=== PATIENT | female | born 1965 | race Caucasian/White ===

== ENCOUNTER 2017-01-28 10:26 | Inpatient (IN) ==
[2017-01-28 12:06] LABS: BASO% 0.1 % (0.0-0.8); EOS# 0.09 X1000 (0.0-0.7); EOS% 0.7 % (0.0-10.0); HEMATOCRIT 40.8 % (37.0-47.0); HEMOGLOBIN 13.6 g/dL (12.0-16.0); IMM GRAN# 1.57 X1000 (0.0-0.04); IMM GRAN% 11.6 % (0.0-0.5); LYMPH% 8.1 % (20.5-51.1); MANUAL DIFF NEEDED? NO; MCH 28.9 PG (27-31); MCHC 33.3 g/dL (33-37); MCV 86.6 FL (81-99); MONO# 0.02 X1000 (0.11-0.59); MONO% 0.1 % (1.7-9.3); MPV 12.9 FL (7.4-10.4); NEUT% 79.4 % (42.2-75.2); PLT 93 X1000 (130-400); RBC 4.71 XMIL (4.2-5.4)
[2017-01-28 12:17] LABS: ALBUMIN 2.6 g/dL (3.5-5.0); POTASSIUM 3.7 mmol/L (3.5-5.1); TOTAL BILIRUBIN 2.73 mg/dL (0.20-1.00); TOTAL PROTEIN 6.5 g/dL (6.3-8.3)
[2017-01-28] MEDS ORDERED: NS 1,000 ML IV ONE ×3 (13:51→16:08)
[2017-01-28] MEDS ORDERED: ZOSYN 3.375 GM in NS 50 ML IV ONE (13:52)
[2017-01-28 14:44] LABS: ACETONE SERUM NEGATIVE (NEGATIVE)
[2017-01-28 14:46] LABS: HEMOGLOBIN A1C 6.7 % (4.8-6.0)
[2017-01-28 14:56] LABS: ACETAMINOPHEN < 1.2 ug/mL (10-30)
[2017-01-28] MEDS ORDERED: ZOFRAN IV PRN (15:09)
[2017-01-28] MEDS ORDERED: ZOSYN 2.25 GM in NS 50 ML IV SCH (15:15)
[2017-01-28] MEDS ORDERED: NS 3,000 ML IV ONE (15:19)
[2017-01-28] MEDS ORDERED: LEVOPHED 8 MG in D5 1/2 NS 250 ML IV SCH (15:30)
[2017-01-28 15:32] LABS: I-STAT BE -6 mmoll (-2-3); I-STAT GLUCOSE 102 mg/dL (70-105); I-STAT HCO3 17.1 mmoll (22.0-26.0); I-STAT HEMATOCRIT 36 % (38-51); I-STAT HEMOGLOBIN 12.2 g/dL (11.5-17.5); I-STAT IONIZED CALCIUM 1.14 mmoll (1.12-1.32); I-STAT K 3.4 mmoll (3.5-4.9); I-STAT PCO2 20.9 mmHg (35.0-45.0); I-STAT SO2 98 % (95-98); I-STAT SODIUM 128 mmoll (138-146); I-STAT TCO2 18 mmoll (23-27)
[2017-01-28 15:49] LABS: URINE SOURCE CATH
[2017-01-28 15:55] LABS: UR CREAT RANDOM 249.4 mg/dL (11-20)
[2017-01-28 15:59] LABS: BILIRUBIN URINE MODERATE (NEGATIVE); BLOOD URINE SMALL (NEGATIVE); CLARITY CLOUDY (CLEAR); COLOR YELLOW; GLUCOSE URINE NEGATIVE (NEGATIVE); LEUKOCYTES URINE TRACE (NEGATIVE); NITRITE URINE NEGATIVE (NEGATIVE); PROTEIN URINE 100 mg/dL (NEGATIVE); SP GRAVITY URINE >= 1.030
[2017-01-28 16:18] LABS: URINE CULTURE NEEDED? YES; URINE EPITHELIAL CELLS <10 /HPF (<10); URINE RBC <10 /HPF (<10); URINE WBC <10 /HPF (<10)
[2017-01-28 16:20] LABS: URINE CAST GRANULAR PRESENT /LPF; URINE CRYSTAL NONE SEEN /HPF
[2017-01-28] MEDS: HUMALOG SUBQ SCH ×2 (17:03→20:03)
[2017-01-28] MEDS: NS 1,000 ML IV SCH ×2 (17:03→23:05)
[2017-01-28] MEDS: FOLIC ACID 1 MG in NS 50 ML IV SCH (17:08)
[2017-01-28] MEDS: ZOSYN 2.25 GM in NS 50 ML IV SCH (20:03)
[2017-01-28] MEDS ORDERED: ULTRAM PO ONE ×2 (21:48→21:54)
[2017-01-29] MEDS ORDERED: ATROVENT NEB INH ONE (01:05)
[2017-01-29] MEDS ORDERED: XOPENEX NEB INH ONE (01:05)
[2017-01-29] MEDS ORDERED: LASIX IV ONE (01:06)
[2017-01-29] MEDS ORDERED: LASIX ONE (01:08)
[2017-01-29] MEDS ORDERED: MORPHINE IV ONE (01:15)
[2017-01-29] MEDS ORDERED: NS NEB INH SCH (01:15)
[2017-01-29 01:42] LABS: ALLEN TEST YES; BE -7.2 mmoll (-3.0-3.0); BLOOD TYPE ARTERIAL; DRAW SITE R RADIAL; METHB 1.5 % (0.0-1.5); O2(CT) 19.3 mL/dL (15.0-23.0); PCO2(98.6) 44 mmHg (35-45); PO2(98.6) 324 mmHg (60-100); SAMPLE BLOOD; SAO2 100.3 % (95.0-100.0); THB 13.6 g/dL (11.5-17.4); pH(98.6) 7.26 (7.35-7.45)
[2017-01-29 01:43] LABS: MODALITY BI PAP
[2017-01-29] MEDS: ZOSYN 2.25 GM in NS 50 ML IV SCH ×4 (02:20→21:06)
[2017-01-29] MEDS ORDERED: NS 1,000 ML IV SCH (02:21)
[2017-01-29] MEDS: NS 1,000 ML IV SCH ×2 (03:11→20:00)
[2017-01-29 05:58] LABS: ALBUMIN 2.5 g/dL (3.5-5.0); CALCIUM 8.2 mg/dL (8.8-10.2); HEMATOCRIT 39.3 % (37.0-47.0); MCH 29.5 PG (27-31); MCHC 33.1 g/dL (33-37); MCV 89.1 FL (81-99); MPV 12.7 FL (7.4-10.4); POTASSIUM 3.7 mmol/L (3.5-5.1); RBC 4.41 XMIL (4.2-5.4); TOTAL BILIRUBIN 3.09 mg/dL (0.20-1.00); TOTAL PROTEIN 5.9 g/dL (6.3-8.3)
[2017-01-29] MEDS: HUMALOG SUBQ SCH ×4 (06:10→21:05)
[2017-01-29 07:56] LABS: BLOOD TYPE ARTERIAL; SAMPLE BLOOD
[2017-01-29 07:57] LABS: ALLEN TEST YES; BE -6.5 mmoll (-3.0-3.0); DRAW SITE L RADIAL; METHB 1.3 % (0.0-1.5); MODALITY VENTIMASK; O2(CT) 17.3 mL/dL (15.0-23.0); PCO2(98.6) 44 mmHg (35-45); PO2(98.6) 106 mmHg (60-100); SAO2 99.6 % (95.0-100.0); THB 12.7 g/dL (11.5-17.4); pH(98.6) 7.27 (7.35-7.45)
[2017-01-29 09:39] LABS: URINE SOURCE CATH
[2017-01-29 09:49] LABS: BILIRUBIN URINE SMALL (NEGATIVE); BLOOD URINE SMALL (NEGATIVE); COLOR YELLOW; GLUCOSE URINE NEGATIVE (NEGATIVE); LEUKOCYTES URINE MODERATE (NEGATIVE); NITRITE URINE NEGATIVE (NEGATIVE); PROTEIN URINE 50 mg/dL (NEGATIVE); TURBIDITY URINE TURBID (CLEAR); UROBILINOGEN URINE 4 mg/dL (NORMAL)
[2017-01-29 09:56] LABS: UR CREAT RANDOM 288.7 mg/dL (11-20); UR PROT RANDOM 89.5 mg/dL
[2017-01-29 10:06] LABS: UR EPITHELIAL CELLS <10 /HPF (<10); URINE RBC <10 /HPF (<10)
[2017-01-29 10:30] LABS: URINE BACTERIA NEGATIVE /HPF; URINE MICRO REVIEW NEEDED? YES
[2017-01-29 11:00] LABS: URINE CASTS NONE SEEN; URINE CRYSTALS NONE SEEN; URINE SMALL ROUND CELLS NONE SEEN
[2017-01-29 11:38] LABS: HEPATITIS PROFILE ACUTE SEE COMMENTS
[2017-01-29 14:38] LABS: INR 1.1; PROTIME 11.6 Seconds (9.2-11.7)
[2017-01-29 15:22] LABS: ALBUMIN 2.3 g/dL (3.5-5.0); CALCIUM 8.1 mg/dL (8.8-10.2); POTASSIUM 4.6 mmol/L (3.5-5.1)
[2017-01-29] MEDS: FOLIC ACID 1 MG in NS 50 ML IV SCH (16:37)
[2017-01-29] MEDS: MORPHINE IV PRN (22:30)
[2017-01-30] MEDS: ZOSYN 2.25 GM in NS 50 ML IV SCH (03:00)
[2017-01-30 06:36] LABS: ALBUMIN 2.3 g/dL (3.5-5.0); CALCIUM 8.3 mg/dL (8.8-10.2); POTASSIUM 4.5 mmol/L (3.5-5.1); TOTAL BILIRUBIN 3.06 mg/dL (0.20-1.00); TOTAL PROTEIN 5.8 g/dL (6.3-8.3)
[2017-01-30 06:42] LABS: HEMATOCRIT 36.7 % (37.0-47.0); HEMOGLOBIN 11.9 g/dL (12.0-16.0); MCH 29.6 PG (27-31); MCHC 32.4 g/dL (33-37); MCV 91.3 FL (81-99); MPV 13.3 FL (7.4-10.4); RBC 4.02 XMIL (4.2-5.4)
[2017-01-30] MEDS: HUMALOG SUBQ SCH ×4 (07:02→20:48)
[2017-01-30 08:16] LABS: ALLEN TEST YES; BE -6.5 mmoll (-3.0-3.0); BLOOD TYPE ARTERIAL; DRAW SITE R RADIAL; METHB 1.4 % (0.0-1.5); O2(CT) 16.7 mL/dL (15.0-23.0); PCO2(98.6) 49 mmHg (35-45); PO2(98.6) 175 mmHg (60-100); SAMPLE BLOOD; pH(98.6) 7.24 (7.35-7.45)
[2017-01-30 08:17] LABS: MODALITY BI PAP
[2017-01-30] MEDS ORDERED: KEFZOL 1 GM/D5W 1 GM/50 ML IVPB IV ONE (09:01)
[2017-01-30] MEDS ORDERED: LOVENOX SUBQ SCH (10:00)
[2017-01-30] MEDS ORDERED: SODIUM BICARBONATE PO ONE (11:06)
[2017-01-30] MEDS: NS 1,000 ML IV SCH (14:06)
[2017-01-30] MEDS ORDERED: AMIDATE ONE ×2 (15:31)
[2017-01-30] MEDS: MORPHINE IV PRN (15:33)
[2017-01-30] MEDS ORDERED: QUELICIN (DOSE) ONE (15:33)
[2017-01-30] MEDS ORDERED: DIPRIVAN 1% ONE (16:09)
[2017-01-30] MEDS: FOLIC ACID 1 MG in NS 50 ML IV SCH (17:29)
[2017-01-30] MEDS ORDERED: NORCO-10 PO PRN (17:42)
[2017-01-30] MEDS: KEFZOL 500 MG in NS 50 ML IV SCH (20:49)
[2017-01-31 05:17] LABS: ALLEN TEST YES; BE -5.1 mmoll (-3.0-3.0); BLOOD TYPE ARTERIAL; DRAW SITE R RADIAL; METHB 1.3 % (0.0-1.5); MODALITY BI PAP; O2(CT) 20.7 mL/dL (15.0-23.0); PCO2(98.6) 50 mmHg (35-45); PO2(98.6) 92 mmHg (60-100); SAMPLE BLOOD; SAO2 98.6 % (95.0-100.0); THB 15.4 g/dL (11.5-17.4); pH(98.6) 7.26 (7.35-7.45)
[2017-01-31] MEDS: NS 1,000 ML IV SCH ×2 (06:24→21:07)
[2017-01-31 06:40] LABS: HEMATOCRIT 34.5 % (37.0-47.0); HEMOGLOBIN 11.1 g/dL (12.0-16.0); MCH 29.1 PG (27-31); MCHC 32.2 g/dL (33-37); MCV 90.6 FL (81-99); MPV 11.9 FL (7.4-10.4); RBC 3.81 XMIL (4.2-5.4)
[2017-01-31 07:07] LABS: ALBUMIN 2.3 g/dL (3.5-5.0); CALCIUM 8.3 mg/dL (8.8-10.2); POTASSIUM 4.1 mmol/L (3.5-5.1); TOTAL BILIRUBIN 3.11 mg/dL (0.20-1.00); TOTAL PROTEIN 5.7 g/dL (6.3-8.3)
[2017-01-31] MEDS: HUMALOG SUBQ SCH ×4 (07:09→21:06)
[2017-01-31] MEDS: KEFZOL 500 MG in NS 50 ML IV SCH ×2 (08:10→21:05)
[2017-01-31] MEDS ORDERED: SODIUM BICARBONATE PO ONE (12:25)
[2017-01-31] MEDS: FOLIC ACID 1 MG in NS 50 ML IV SCH (17:09)
[2017-02-01] MEDS: NS 1,000 ML IV SCH ×2 (04:43→15:22)
[2017-02-01 05:04] LABS: ALLEN TEST YES; BE -4.1 mmoll (-3.0-3.0); BLOOD TYPE ARTERIAL; DRAW SITE R RADIAL; METHB 1.2 % (0.0-1.5); O2(CT) 17.5 mL/dL (15.0-23.0); PCO2(98.6) 44 mmHg (35-45); PO2(98.6) 143 mmHg (60-100); SAMPLE BLOOD; THB 12.7 g/dL (11.5-17.4); pH(98.6) 7.31 (7.35-7.45)
[2017-02-01 05:06] LABS: MODALITY BI PAP
[2017-02-01 06:00] LABS: ALBUMIN 2.1 g/dL (3.5-5.0); BASO% 0.5 % (0.0-0.8); CALCIUM 8.8 mg/dL (8.8-10.2); EOS# 0.11 X1000 (0.0-0.7); EOS% 0.6 % (0.0-10.0); HEMATOCRIT 36.3 % (37.0-47.0); IMM GRAN# 1.35 X1000 (0.0-0.04); IMM GRAN% 7.6 % (0.0-0.5); LYMPH# 2.42 X1000 (1.2-3.4); LYMPH% 13.7 % (20.5-51.1); MANUAL DIFF NEEDED? YES; MCH 28.7 PG (27-31); MCHC 33.1 g/dL (33-37); MCV 86.8 FL (81-99); MONO# 0.87 X1000 (0.11-0.59); MONO% 4.9 % (1.7-9.3); MPV 12.6 FL (7.4-10.4); NEUT% 72.7 % (42.2-75.2); PLT 89 X1000 (130-400); POTASSIUM 4.2 mmol/L (3.5-5.1); RBC 4.18 XMIL (4.2-5.4); TOTAL BILIRUBIN 4.15 mg/dL (0.20-1.00); TOTAL PROTEIN 5.9 g/dL (6.3-8.3)
[2017-02-01 06:45] LABS: BANDS 4 % (0-1); EOS 2 % (1-10); LYMPHS 16 % (21-51); MONO 4 % (1-9)
[2017-02-01] MEDS: HUMALOG SUBQ SCH ×4 (07:01→20:07)
[2017-02-01] MEDS: KEFZOL 500 MG in NS 50 ML IV SCH ×2 (08:14→20:07)
[2017-02-01] MEDS: FOLIC ACID 1 MG in NS 50 ML IV SCH (17:46)
[2017-02-01] MEDS ORDERED: LASIX IV ONE (18:26)
[2017-02-01] MEDS: MORPHINE IV PRN (21:40)
[2017-02-02] MEDS: MORPHINE IV PRN (04:22)
[2017-02-02 05:00] LABS: BASO% 0.5 % (0.0-0.8); EOS# 0.08 X1000 (0.0-0.7); EOS% 0.3 % (0.0-10.0); HEMATOCRIT 34.6 % (37.0-47.0); HEMOGLOBIN 11.6 g/dL (12.0-16.0); IMM GRAN# 2.23 X1000 (0.0-0.04); IMM GRAN% 9.2 % (0.0-0.5); LYMPH# 2.68 X1000 (1.2-3.4); MANUAL DIFF NEEDED? YES; MCH 28.9 PG (27-31); MCHC 33.5 g/dL (33-37); MCV 86.1 FL (81-99); MONO% 3.7 % (1.7-9.3); MPV 11.5 FL (7.4-10.4); NEUT% 75.3 % (42.2-75.2); PLT 106 X1000 (130-400); RBC 4.02 XMIL (4.2-5.4)
[2017-02-02 05:17] LABS: BANDS 8 % (0-1); LYMPHS 14 % (21-51); MONO 4 % (1-9)
[2017-02-02 05:24] LABS: ALBUMIN 2.1 g/dL (3.5-5.0); CALCIUM 8.1 mg/dL (8.8-10.2); TOTAL BILIRUBIN 3.7 mg/dL (0.20-1.00); TOTAL PROTEIN 5.9 g/dL (6.3-8.3)
[2017-02-02] MEDS: HUMALOG SUBQ SCH ×4 (06:10→20:50)
[2017-02-02] MEDS: NS 1,000 ML IV SCH (09:00)
[2017-02-02] MEDS: KEFZOL 500 MG in NS 50 ML IV SCH (09:00)
[2017-02-02] MEDS ORDERED: LASIX IV STA (09:25)
[2017-02-02] MEDS: LASIX IV SCH ×2 (09:55→21:46)
[2017-02-02] MEDS: MAXIPIME 2 GM in NS 100 ML IV SCH ×2 (16:24→23:12)
[2017-02-02] MEDS: FOLIC ACID 1 MG in NS 50 ML IV SCH (17:31)
[2017-02-03 04:27] LABS: ALLEN TEST YES; BE 3.6 mmoll (-3.0-3.0); BLOOD TYPE ARTERIAL; DRAW SITE R RADIAL; METHB 1.5 % (0.0-1.5); O2(CT) 16.5 mL/dL (15.0-23.0); PCO2(98.6) 50 mmHg (35-45); PO2(98.6) 129 mmHg (60-100); SAMPLE BLOOD; SAO2 99.9 % (95.0-100.0); THB 12.1 g/dL (11.5-17.4); pH(98.6) 7.38 (7.35-7.45)
[2017-02-03 04:28] LABS: MODALITY BI PAP
[2017-02-03 05:23] LABS: BASO% 0.5 % (0.0-0.8); EOS# 0.19 X1000 (0.0-0.7); EOS% 0.8 % (0.0-10.0); HEMATOCRIT 33.5 % (37.0-47.0); HEMOGLOBIN 11.3 g/dL (12.0-16.0); IMM GRAN# 2.14 X1000 (0.0-0.04); IMM GRAN% 9.2 % (0.0-0.5); LYMPH# 2.85 X1000 (1.2-3.4); LYMPH% 12.2 % (20.5-51.1); MANUAL DIFF NEEDED? YES; MCH 29.2 PG (27-31); MCHC 33.7 g/dL (33-37); MCV 86.6 FL (81-99); MONO# 1.07 X1000 (0.11-0.59); MONO% 4.6 % (1.7-9.3); MPV 11.6 FL (7.4-10.4); NEUT% 72.7 % (42.2-75.2); PLT 133 X1000 (130-400); RBC 3.87 XMIL (4.2-5.4)
[2017-02-03 05:28] LABS: ALBUMIN 2.1 g/dL (3.5-5.0); CALCIUM 8.3 mg/dL (8.8-10.2); POTASSIUM 3.6 mmol/L (3.5-5.1); TOTAL BILIRUBIN 2.76 mg/dL (0.20-1.00); TOTAL PROTEIN 5.8 g/dL (6.3-8.3)
[2017-02-03 06:16] LABS: BANDS 16 % (0-1); EOS 2 % (1-10); LYMPHS 14 % (21-51); MONO 4 % (1-9)
[2017-02-03] MEDS: HUMALOG SUBQ SCH ×4 (06:23→20:20)
[2017-02-03] MEDS: MAXIPIME 2 GM in NS 100 ML IV SCH ×4 (06:33→22:42)
[2017-02-03] MEDS: LASIX IV SCH ×2 (08:41→20:35)
[2017-02-03] MEDS: FOLIC ACID 1 MG in NS 50 ML IV SCH (17:51)
[2017-02-03] MEDS: PROTONIX IV SCH (17:51)
[2017-02-03] MEDS: DULCOLAX PR SCH (20:35)
[2017-02-04] MEDS: SODIUM CHLORIDE 0.9% INJ SCH ×2 (02:17→16:00)
[2017-02-04] MEDS: PROTONIX IV SCH ×2 (02:17→15:59)
[2017-02-04 06:05] LABS: BASO% 0.5 % (0.0-0.8); EOS# 0.36 X1000 (0.0-0.7); EOS% 1.6 % (0.0-10.0); HEMATOCRIT 33.5 % (37.0-47.0); HEMOGLOBIN 10.9 g/dL (12.0-16.0); IMM GRAN# 1.93 X1000 (0.0-0.04); IMM GRAN% 8.8 % (0.0-0.5); LYMPH# 2.89 X1000 (1.2-3.4); LYMPH% 13.2 % (20.5-51.1); MANUAL DIFF NEEDED? YES; MCH 28.9 PG (27-31); MCHC 32.5 g/dL (33-37); MCV 88.9 FL (81-99); MONO# 0.91 X1000 (0.11-0.59); MONO% 4.2 % (1.7-9.3); MPV 11.2 FL (7.4-10.4); NEUT% 71.7 % (42.2-75.2); PLT 157 X1000 (130-400); RBC 3.77 XMIL (4.2-5.4)
[2017-02-04 06:10] LABS: AGAP 12; ALBUMIN 2.2 g/dL (3.5-5.0); ALKALINE PHOSPHATASE 244 U/L (32-104); BUN 38 mg/dL (8-22); CALCIUM 8.3 mg/dL (8.8-10.2); CHLORIDE 96 mmol/L (98-107); COSMO 286; GOT 34 U/L (10-30); GPT 24 U/L (10-36); POTASSIUM 3.4 mmol/L (3.5-5.1); SODIUM 138 mmol/L (136-145); TCO2 30 mmol/L (25-35); TOTAL BILIRUBIN 1.98 mg/dL (0.20-1.00); TOTAL PROTEIN 6.2 g/dL (6.3-8.3)
[2017-02-04] MEDS: HUMALOG SUBQ SCH ×4 (06:10→22:49)
[2017-02-04] MEDS: MAXIPIME 2 GM in NS 100 ML IV SCH ×3 (06:32→23:29)
[2017-02-04 07:02] LABS: BANDS 4 % (0-1); EOS 2 % (1-10); LYMPHS 16 % (21-51); MONO 4 % (1-9)
[2017-02-04] MEDS: LASIX IV SCH (08:16)
[2017-02-04] MEDS ORDERED: MORPHINE IV PRN (11:03)
[2017-02-04 13:04] LABS: HEPATITIS PROFILE ACUTE SEE COMMENTS
[2017-02-04] MEDS ORDERED: LASIX IV ONE (19:06)
[2017-02-04] MEDS: DULCOLAX PR SCH (21:49)
[2017-02-05] MEDS: PROTONIX IV SCH (01:59)
[2017-02-05 06:21] LABS: AGAP 12; BUN 33 mg/dL (8-22); CALCIUM 8.4 mg/dL (8.8-10.2); CHLORIDE 93 mmol/L (98-107); COSMO 284; POTASSIUM 3.3 mmol/L (3.5-5.1); SODIUM 138 mmol/L (136-145); TCO2 33 mmol/L (25-35)
[2017-02-05] MEDS: HUMALOG SUBQ SCH ×4 (06:21→21:52)
[2017-02-05 06:31] LABS: MAGNESIUM 1.7 mg/dL (1.5-2.7)
[2017-02-05 06:33] LABS: BASO% 0.4 % (0.0-0.8); EOS# 0.37 X1000 (0.0-0.7); HEMATOCRIT 33.1 % (37.0-47.0); HEMOGLOBIN 10.6 g/dL (12.0-16.0); IMM GRAN# 1.45 X1000 (0.0-0.04); IMM GRAN% 7.8 % (0.0-0.5); LYMPH# 2.93 X1000 (1.2-3.4); LYMPH% 15.8 % (20.5-51.1); MANUAL DIFF NEEDED? YES; MCH 28.7 PG (27-31); MCV 89.7 FL (81-99); MONO# 0.87 X1000 (0.11-0.59); MONO% 4.7 % (1.7-9.3); NEUT% 69.3 % (42.2-75.2); PLT 194 X1000 (130-400); RBC 3.69 XMIL (4.2-5.4)
[2017-02-05 07:10] LABS: BANDS 8 % (0-1); LYMPHS 18 % (21-51)
[2017-02-05] MEDS: MAXIPIME 2 GM in NS 100 ML IV SCH ×2 (07:54→15:44)
[2017-02-05] MEDS: LASIX IV SCH ×3 (07:58→21:51)
[2017-02-05] MEDS ORDERED: KLOR-CON PO ONE (08:29)
[2017-02-05] MEDS: DULCOLAX PR SCH (21:51)
[2017-02-06] MEDS: MAXIPIME 2 GM in NS 100 ML IV SCH ×3 (06:41→20:58)
[2017-02-06 06:43] LABS: MANUAL DIFF NEEDED? NO
[2017-02-06] MEDS: PRILOSEC PO SCH (06:43)
[2017-02-06 06:46] LABS: BASO% 0.3 % (0.0-0.8); EOS# 0.29 X1000 (0.0-0.7); EOS% 2.1 % (0.0-10.0); HEMATOCRIT 33.9 % (37.0-47.0); HEMOGLOBIN 10.8 g/dL (12.0-16.0); IMM GRAN# 0.62 X1000 (0.0-0.04); IMM GRAN% 4.6 % (0.0-0.5); LYMPH# 2.63 X1000 (1.2-3.4); LYMPH% 19.4 % (20.5-51.1); MCH 28.7 PG (27-31); MCHC 31.9 g/dL (33-37); MCV 90.2 FL (81-99); MONO# 0.65 X1000 (0.11-0.59); MONO% 4.8 % (1.7-9.3); NEUT% 68.8 % (42.2-75.2); PLT 219 X1000 (130-400); RBC 3.76 XMIL (4.2-5.4)
[2017-02-06 07:01] LABS: AGAP 11; ALBUMIN 2.4 g/dL (3.5-5.0); ALKALINE PHOSPHATASE 185 U/L (32-104); BUN 28 mg/dL (8-22); CALCIUM 8.4 mg/dL (8.8-10.2); CHLORIDE 98 mmol/L (98-107); COSMO 291; GOT 28 U/L (10-30); GPT 19 U/L (10-36); POTASSIUM 3.5 mmol/L (3.5-5.1); SODIUM 143 mmol/L (136-145); TCO2 34 mmol/L (25-35); TOTAL BILIRUBIN 1.18 mg/dL (0.20-1.00); TOTAL PROTEIN 6.2 g/dL (6.3-8.3)
[2017-02-06] MEDS: HUMALOG SUBQ SCH ×4 (07:56→22:22)
[2017-02-06] MEDS: LASIX IV SCH ×2 (09:15→20:58)
[2017-02-06] MEDS: DULCOLAX PR SCH (20:57)
[2017-02-07] MEDS: MAXIPIME 2 GM in NS 100 ML IV SCH ×3 (05:37→20:35)
[2017-02-07 05:41] LABS: MANUAL DIFF NEEDED? NO
[2017-02-07 05:47] LABS: BASO% 0.5 % (0.0-0.8); EOS# 0.25 X1000 (0.0-0.7); EOS% 2.3 % (0.0-10.0); HEMATOCRIT 35.2 % (37.0-47.0); IMM GRAN# 0.24 X1000 (0.0-0.04); IMM GRAN% 2.2 % (0.0-0.5); LYMPH# 2.43 X1000 (1.2-3.4); LYMPH% 22.2 % (20.5-51.1); MCH 28.3 PG (27-31); MCHC 31.3 g/dL (33-37); MCV 90.5 FL (81-99); MONO# 0.56 X1000 (0.11-0.59); MONO% 5.1 % (1.7-9.3); MPV 10.8 FL (7.4-10.4); NEUT% 67.7 % (42.2-75.2); PLT 246 X1000 (130-400); RBC 3.89 XMIL (4.2-5.4)
[2017-02-07] MEDS: SYNTHROID PO SCH (06:01)
[2017-02-07] MEDS: HUMALOG SUBQ SCH ×4 (06:01→20:35)
[2017-02-07] MEDS: PRILOSEC PO SCH (06:01)
[2017-02-07 06:03] LABS: AGAP 17; ALBUMIN 2.5 g/dL (3.5-5.0); ALKALINE PHOSPHATASE 171 U/L (32-104); BUN 26 mg/dL (8-22); CALCIUM 8.6 mg/dL (8.8-10.2); CHLORIDE 90 mmol/L (98-107); COSMO 287; GOT 34 U/L (10-30); GPT 21 U/L (10-36); POTASSIUM 3.4 mmol/L (3.5-5.1); SODIUM 141 mmol/L (136-145); TCO2 34 mmol/L (25-35); TOTAL BILIRUBIN 1.18 mg/dL (0.20-1.00); TOTAL PROTEIN 6.2 g/dL (6.3-8.3)
[2017-02-07] MEDS ORDERED: KLOR-CON PO ONE (07:44)
[2017-02-07] MEDS: LASIX IV SCH ×2 (08:32→20:36)
[2017-02-07] MEDS: NORVASC PO SCH ×2 (08:37→20:36)
[2017-02-07] MEDS: DULCOLAX PR SCH (20:36)
[2017-02-08] MEDS: MAXIPIME 2 GM in NS 100 ML IV SCH (05:19)
[2017-02-08 05:41] LABS: MANUAL DIFF NEEDED? NO
[2017-02-08 05:48] LABS: BASO% 0.6 % (0.0-0.8); EOS# 0.26 X1000 (0.0-0.7); EOS% 2.6 % (0.0-10.0); HEMATOCRIT 33.9 % (37.0-47.0); HEMOGLOBIN 10.6 g/dL (12.0-16.0); LYMPH# 2.25 X1000 (1.2-3.4); LYMPH% 22.7 % (20.5-51.1); MCH 28.3 PG (27-31); MCHC 31.3 g/dL (33-37); MCV 90.6 FL (81-99); MONO# 0.64 X1000 (0.11-0.59); MONO% 6.5 % (1.7-9.3); MPV 10.8 FL (7.4-10.4); NEUT% 66.6 % (42.2-75.2); PLT 256 X1000 (130-400); RBC 3.74 XMIL (4.2-5.4)
[2017-02-08 06:00] LABS: AGAP 8; ALBUMIN 2.6 g/dL (3.5-5.0); ALKALINE PHOSPHATASE 151 U/L (32-104); BUN 24 mg/dL (8-22); CALCIUM 8.4 mg/dL (8.8-10.2); CHLORIDE 94 mmol/L (98-107); COSMO 283; GOT 32 U/L (10-30); GPT 23 U/L (10-36); POTASSIUM 3.4 mmol/L (3.5-5.1); SODIUM 139 mmol/L (136-145); TCO2 37 mmol/L (25-35); TOTAL PROTEIN 6.2 g/dL (6.3-8.3)
[2017-02-08] MEDS: HUMALOG SUBQ SCH ×4 (06:17→21:16)
[2017-02-08] MEDS: SYNTHROID PO SCH (06:19)
[2017-02-08] MEDS: PRILOSEC PO SCH (06:19)
[2017-02-08] MEDS ORDERED: KLOR-CON PO ONE (07:38)
[2017-02-08] MEDS: LASIX IV SCH ×2 (09:05→21:15)
[2017-02-08] MEDS: NORVASC PO SCH (09:05)
[2017-02-08] MEDS: LEVAQUIN PO SCH (09:05)
[2017-02-08] MEDS: ALBUMIN 25% IV SCH (14:57)
[2017-02-08] MEDS: LOPRESSOR PO SCH (21:16)
[2017-02-08] MEDS: DULCOLAX PR SCH (21:16)
[2017-02-08] MEDS: LOVENOX SUBQ SCH (21:21)
[2017-02-09 05:09] LABS: ALLEN TEST YES; BE 12.4 mmoll (-3.0-3.0); BLOOD TYPE ARTERIAL; DRAW SITE R RADIAL; METHB 1.1 % (0.0-1.5); O2(CT) 16.4 mL/dL (15.0-23.0); SAMPLE BLOOD; SAO2 84.6 % (95.0-100.0); THB 14.3 g/dL (11.5-17.4); pH(98.6) 7.45 (7.35-7.45)
[2017-02-09 05:10] LABS: PCO2(98.6) 56 mmHg (35-45)
[2017-02-09 05:11] LABS: MODALITY ROOM AIR; PO2(98.6) 43 mmHg (60-100)
[2017-02-09] MEDS: PRILOSEC PO SCH ×2 (05:41→06:19)
[2017-02-09] MEDS: SYNTHROID PO SCH ×2 (05:41→06:19)
[2017-02-09 05:49] LABS: HEMATOCRIT 32.6 % (37.0-47.0); HEMOGLOBIN 10.3 g/dL (12.0-16.0); MCH 29.4 PG (27-31); MCHC 31.6 g/dL (33-37); MCV 93.1 FL (81-99); MPV 10.8 FL (7.4-10.4); RBC 3.5 XMIL (4.2-5.4)
[2017-02-09] MEDS: HUMALOG SUBQ SCH ×4 (06:08→20:45)
[2017-02-09 06:12] LABS: ALBUMIN 3.1 g/dL (3.5-5.0); DIRECT BILIRUBIN 0.5 mg/dL (0.00-0.20); TOTAL BILIRUBIN 1.15 mg/dL (0.20-1.00); TOTAL PROTEIN 5.8 g/dL (6.3-8.3)
[2017-02-09 06:21] LABS: AGAP 9; BUN 19 mg/dL (8-22); CALCIUM 8.9 mg/dL (8.8-10.2); CHLORIDE 94 mmol/L (98-107); COSMO 281; MAGNESIUM 1.5 mg/dL (1.5-2.7); POTASSIUM 3.8 mmol/L (3.5-5.1); SODIUM 139 mmol/L (136-145); TCO2 36 mmol/L (25-35)
[2017-02-09] MEDS ORDERED: POTASSIUM PHOSPHATE 30 MMOL in NS 250 ML IV ONE (06:23)
[2017-02-09] MEDS ORDERED: MAGNESIUM SULFATE 2 GM/S.W.I. 2 GM/50 ML IVPB IV ONE (06:23)
[2017-02-09] MEDS: ALBUMIN 25% IV SCH (08:38)
[2017-02-09] MEDS: LASIX IV SCH ×2 (08:39→20:45)
[2017-02-09] MEDS: LEVAQUIN PO SCH (08:39)
[2017-02-09] MEDS: LOPRESSOR PO SCH ×2 (08:39→20:45)
[2017-02-09] MEDS ORDERED: JANUVIA PO SCH (09:00)
[2017-02-09] MEDS: GLUCOPHAGE PO SCH (17:07)
[2017-02-09] MEDS: LOVENOX SUBQ SCH (20:45)
[2017-02-09] MEDS: DULCOLAX PR SCH (21:45)
[2017-02-10] MEDS: HUMALOG SUBQ SCH ×2 (05:59→11:25)
[2017-02-10] MEDS: SYNTHROID PO SCH (06:00)
[2017-02-10] MEDS: PRILOSEC PO SCH (06:00)
[2017-02-10 06:41] LABS: AGAP 11; BUN 18 mg/dL (8-22); CALCIUM 8.9 mg/dL (8.8-10.2); CHLORIDE 94 mmol/L (98-107); COSMO 281; MAGNESIUM 1.4 mg/dL (1.5-2.7); POTASSIUM 4.2 mmol/L (3.5-5.1); SODIUM 140 mmol/L (136-145); TCO2 35 mmol/L (25-35)
[2017-02-10] MEDS ORDERED: NEUTRA-PHOS PO ONE (07:52)
[2017-02-10] MEDS ORDERED: MAGNESIUM SULFATE 2 GM/S.W.I. 2 GM/50 ML IVPB IV ONE (07:52)
[2017-02-10] MEDS: LEVAQUIN PO SCH (08:05)
[2017-02-10] MEDS: LOPRESSOR PO SCH (08:05)
[2017-02-10] MEDS: ALBUMIN 25% IV SCH (08:06)
[2017-02-10] MEDS: GLUCOPHAGE PO SCH (08:06)
[2017-02-10] MEDS: LASIX IV SCH (08:16)
[2017-02-10 12:51] VITALS: BP 136/79
== END 2017-02-10 13:36 | disposition home or self-care (01) ==
LOC: ED 10:26 → SUATTDRO 10:27 → ICU 10:27 → 4N 02-04 15:07
PROVIDERS: ATTEND Internal Medicine